=== PATIENT | female | born 1995 | race Caucasian/White ===

== ENCOUNTER → 2020-05-29 | Outpatient (CLI) | payer OTHER ==
[2020-05-29 19:46] LABS: Appearance, Urine Clear (Clear); Bilirubin, Urine Neg (Neg); Blood, Urine Neg (Neg); Color, Urine Yellow (P-Yellow); Glucose Qualitative, Urine Neg (Neg); Ketones, Urine Neg (Neg); Leukocyte Esterase, Urine Neg (Neg); Nitrite, Urine Neg (Neg); Protein, Urine Neg (Neg); Specific Gravity, Urine 1.005 (1.003-1.022); Urobilinogen, Urine NORM (Normal)
[2020-05-30 07:41] LABS: Candida species (DNA Probe) Positive (NEGATIVE); G. vaginalis (DNA Probe) Positive (NEGATIVE); T. vaginalis (DNA Probe) Negative (NEGATIVE)
[2020-05-31 06:10] LABS: CHLAMYDIA TRACHOMATIS, NAA Negative (Negative); NEISSERIA GONORRHOEAE, NAA Negative (Negative)
== END | disposition home or self-care (01) ==
LOC: LAB SHORT 18:39 → LAB 18:39
PROVIDERS: Obstetrics & Gynecology
DX: Z01.419 Encounter for gynecological examination (general) (routine) without abnormal findings (principal); Z11.3 Encounter for screening for infections with a predominantly sexual mode of transmission; R35.0 Frequency of micturition; N76.0 Acute vaginitis
CPT/HCPCS: 81003; 87480; 87491; 87510; 87591; 87660; G0123

== ENCOUNTER → 2020-07-23 | Outpatient (CLI) | payer OTHER ==
[2020-07-24 07:42] LABS: Candida species (DNA Probe) Positive (NEGATIVE); G. vaginalis (DNA Probe) Positive (NEGATIVE); T. vaginalis (DNA Probe) Negative (NEGATIVE)
== END | disposition home or self-care (01) ==
LOC: LAB SHORT 10:30 → LAB 10:30
PROVIDERS: Obstetrics & Gynecology
DX: N76.0 Acute vaginitis (principal)
CPT/HCPCS: 87480; 87510; 87660

== ENCOUNTER → 2020-09-12 | Outpatient (CLI) | payer OTHER ==
[2020-09-13 09:14] LABS: Candida species (DNA Probe) Negative (NEGATIVE); G. vaginalis (DNA Probe) Negative (NEGATIVE); T. vaginalis (DNA Probe) Negative (NEGATIVE)
== END | disposition home or self-care (01) ==
LOC: PLD 12:00 → LAB SHORT 12:00
PROVIDERS: Obstetrics & Gynecology
DX: N76.0 Acute vaginitis (principal)
CPT/HCPCS: 87480; 87510; 87660

== ENCOUNTER → 2021-07-28 | Outpatient (CLI) | payer OTHER ==
[2021-07-28 16:33] LABS: Source, Urine Clean Catch
[2021-07-28 20:12] LABS: Appearance, Urine Clear (Clear); Bilirubin, Urine Neg (Neg); Blood, Urine Neg (Neg); Glucose Qualitative, Urine Neg (Neg); Ketones, Urine Neg (Neg); Leukocyte Esterase, Urine Neg (Neg); Nitrite, Urine Neg (Neg); Protein, Urine Neg (Neg); Specific Gravity, Urine 1.005 (1.003-1.022); Urobilinogen, Urine NORM (Normal); pH, Urine 6.5 (5.0-8.0)
[2021-07-28 20:21] LABS: Color, Urine Yellow (P-Yellow)
== END | disposition home or self-care (01) ==
LOC: LAB SHORT 16:31 → LAB 16:31
PROVIDERS: Obstetrics & Gynecology
DX: R35.0 Frequency of micturition (principal)
CPT/HCPCS: 81003

== ENCOUNTER → 2022-09-25 | Outpatient (CLI) | payer OTHER | LOC: LAB SHORT 15:34 → LAB 15:34 | PROVIDERS: Obstetrics & Gynecology | DX: Z01.419 Encounter for gynecological examination (general) (routine) without abnormal findings (principal) | CPT/HCPCS: G0145 ==

== ENCOUNTER → 2023-08-31 | Outpatient (CLI) | payer OTHER ==
[2023-09-01 12:34] LABS: Candida species (DNA Probe) Negative (NEGATIVE); G. vaginalis (DNA Probe) Negative (NEGATIVE); T. vaginalis (DNA Probe) Negative (NEGATIVE)
[2023-09-03 03:56] LABS: APTIMA MEDIA TYPE Unisex Swab; C. TRACHOMATIS BY TMA Negative (Negative); N. GONORRHOEAE BY TMA Negative (Negative); SPECIMEN SOURCE Vaginal
== END | disposition home or self-care (01) ==
LOC: LAB 16:16 → LAB SHORT 16:16
PROVIDERS: Advanced Practice Midwife
DX: Z11.3 Encounter for screening for infections with a predominantly sexual mode of transmission (principal); N76.0 Acute vaginitis
CPT/HCPCS: 87480; 87491; 87510; 87591; 87660

== ENCOUNTER → 2023-10-15 | Outpatient (CLI) | payer OTHER ==
[2023-10-16 11:00] LABS: Candida species (DNA Probe) Negative (NEGATIVE); G. vaginalis (DNA Probe) Negative (NEGATIVE); T. vaginalis (DNA Probe) Negative (NEGATIVE)
== END ==
LOC: LAB 18:31 → LAB SHORT 18:31
PROVIDERS: Obstetrics & Gynecology
DX: N76.0 Acute vaginitis (principal)
CPT/HCPCS: 87480; 87510; 87660

== ENCOUNTER → 2025-06-09 | Outpatient (CLI) | payer OTHER ==
[2025-06-10 07:55] LABS: Bacterial Vaginosis PCR Negative (NEGATIVE); Candida Group, PCR NOT DETECTED (NOT DETECT); Candida glabrata-krusei, PCR NOT DETECTED (NOT DETECT)
[2025-06-10 08:25] LABS: Chlamydia Trachomatis Cervix NOT DETECTED (NOT DETECT); Neisseria Gonorrhoea Cervix NOT DETECTED (NOT DETECT)
[2025-06-13 10:37] LABS: HSV SUBTYPE SOURCE VULVAR
== END ==
LOC: LAB 11:33 → LAB SHORT 11:33
PROVIDERS: Physician Assistant Medical
DX: N94.819 Vulvodynia, unspecified (principal)
CPT/HCPCS: 81515; 87491; 87529; 87591